=== PATIENT | female | born 1985 | race American Indian/Alaskan Native ===

== ENCOUNTER 2017-08-17 10:59 | Emergency (ER) | payer MEDICAID ==
--- NOTE | 2017-08-17 11:40 | Emergency Department Report ---
ED ENT HPI - General Chief complaint: Dental/Oral Stated complaint: TOOTHACHE Time Seen by Provider: 08/17/17 11:36 Source: patient, family Mode of arrival: Ambulatory Limitations: No Limitations - History of Present Illness Initial comments: H 32-year-old female complaining of left lower toothache. She said it's been ongoing on and off for months and is worsened today and pain is 6 out of 10 achy and worse with eating. Pain is constant and no alleviating factor. She says she's [id number] Aleve without any relief. Denies any sore throat or drooling. Denies any nasal congestion or runny nose. Denies any cough or shortness of breath or chest pain. Denies any fever or chills. MD complaint: tooth pain Onset/Timin -: month(s) Location: tooth # 1 - Toothache Severity: moderate Severity scale (0 -10): 6 Quality: aching Consistency: constant Improves with: none Worsens with: eating Context- Dental: poor dental care Associated Symptoms: toothache. denies: fever, cough, gum swelling, pain with swallowing, sore throat, tinnitus, hearing loss, discharge from ear, rhinorrhea - Related Data Previous Rx's Medication Instructions Recorded Last Taken Type Acetaminophen/Codeine [Tylenol 1 tab PO Q6H PRN #12 tab 08/17/17 Unknown Rx /Codeine # 3 tab] Clindamycin [Clindamycin CAP] 300 mg PO Q8H 10 Days #30 cap 08/17/17 Unknown Rx Ibuprofen [Motrin] 600 mg PO Q8H PRN #15 tablet 08/17/17 Unknown Rx Allergies Allergy/AdvReac Type Severity Reaction Status Date / Time No Known Allergies Allergy Unverified 08/17/17 11:18 ED Dental HPI - General Chief complaint: Dental/Oral Stated complaint: TOOTHACHE Time Seen by Provider: 08/17/17 11:36 Source: patient Mode of arrival: Ambulatory Limitations: No Limitations - Related Data Previous Rx's Medication Instructions Recorded Last Taken Type Acetaminophen/Codeine [Tylenol 1 tab PO Q6H PRN #12 tab 08/17/17 Unknown Rx /Codeine # 3 tab] Clindamycin [Clindamycin CAP] 300 mg PO Q8H 10 Days #30 cap 08/17/17 Unknown Rx Ibuprofen [Motrin] 600 mg PO Q8H PRN #15 tablet 08/17/17 Unknown Rx Allergies Allergy/AdvReac Type Severity Reaction Status Date / Time No Known Allergies Allergy Unverified 08/17/17 11:18 ED Review of Systems ROS: Stated complaint: TOOTHACHE Other details as noted in HPI Constitutional: denies: chills, fever Eyes: denies: eye pain, eye discharge ENT: dental pain. denies: ear pain, throat pain, epistaxis, congestion Respiratory: denies: cough, shortness of breath, SOB with exertion, SOB at rest , wheezing Cardiovascular: denies: chest pain, palpitations, edema, syncope Gastrointestinal: denies: abdominal pain, nausea, diarrhea Musculoskeletal: denies: back pain, joint swelling, arthralgia Skin: denies: rash, lesions Neurological: denies: headache ED Past Medical Hx - Past Medical History Previous Medical History?: No - Surgical History Past Surgical History?: No - Family History Family history: hypertension - Social History Smoking Status: Never Smoker Substance Use Type: None - Medications Home Medications: Home Medications Medication Instructions Recorded Confirmed Last Taken Type Acetaminophen/Codeine [Tylenol 1 tab PO Q6H PRN #12 tab 08/17/17 Unknown Rx /Codeine # 3 tab] Clindamycin [Clindamycin CAP] 300 mg PO Q8H 10 Days #30 cap 08/17/17 Unknown Rx Ibuprofen [Motrin] 600 mg PO Q8H PRN #15 tablet 08/17/17 Unknown Rx ED Physical Exam - General Limitations: No Limitations General appearance: alert, in no apparent distress - Head Head exam: Present: atraumatic, normocephalic, normal inspection - Eye Eye exam: Present: normal appearance, PERRL, EOMI Pupils: Present: normal accommodation - ENT ENT exam: Present: normal orophraynx, mucous membranes moist, TM's normal bilaterally, normal external ear exam - Expanded ENT Exam Expanded Ear exam: Present: normal external inspection Mouth exam: Present: normal external inspection Teeth exam: Present: dental caries, dental tenderness # (17 and 18), gingival enlargement. Absent: normal inspection, fractured tooth # 1 - Dental Tenderness (tender to palpate at tooth #17 and 18 without any induration or erythema.), Other (positive widespread gingivitis) Throat exam: Positive: normal inspection - Neck Neck exam: Present: normal inspection, full ROM. Absent: tenderness, lymphadenopathy - Respiratory Respiratory exam: Present: normal lung sounds bilaterally. Absent: respiratory distress, chest wall tenderness - Cardiovascular Cardiovascular Exam: Present: regular rate, normal rhythm, normal heart sounds - Extremities Exam Extremities exam: Present: normal inspection, full ROM, normal capillary refill , other (no clubbing, cyanosis or edema+2 pulses. Extremities). Absent: tenderness, pedal edema - Back Exam Back exam: Present: normal inspection - Neurological Exam Neurological exam: Present: alert, oriented X3, normal gait - Psychiatric Psychiatric exam: Present: normal affect, normal mood - Skin Skin exam: Present: warm, dry, intact, normal color. Absent: rash ED Course Vital Signs 08/17/17 11:18 Temperature 99 F Pulse Rate 77 Respiratory 18 Rate Blood Pressure 115/75 O2 Sat by Pulse 100 Oximetry - Reevaluation(s) Reevaluation #1: 08/17/17 11:54 Patient given Percocet 5/325 2 tablets by mouth for pain which relieved her dental pain. She was started on clindamycin 600 mg by mouth. ED Medical Decision Making - Medical Decision Making ED Course: This is a 32-year-old female presented to emergency room report toothache to left lower back tooth #17 and 181 month on and off as she woke up this morning and pain has been worsening. She's taken Advil without any relief. She is here to be evaluated. She was evaluated by myself and found to have widespread gingivitis, dental caries and tenderness to palpate around tooth #17 and 18 with cavities. No injuries or cellulitic area noted. Pain is controlled with pain medication and patient was started on antibiotic. I discussed diagnosis and treatment plan patient and she voiced understanding. p 1: Toothache- percocet 3/325 mg po in ED and pain is better. Will be discharged home in Tylenol 3 and Motrin 2: Gingivitis-patient started on clindamycin 600 mg by mouth and will be discharged home on clindamycin 3: Dental caries-referral to [facility] Education given on diagnosis, gum care, Flossing, medication and treatment plan is for some nondistended. Referral to [facility] Patient discharged home in stable condition with her family. Her vital signs are stable she's afebrile and she says she is feeling better. I discussed the patient that she is to call dentist today to schedule an appointment. She was understanding. Discharged home with prescription for Tylenol 3, Motrin and clindamycin. - Differential Diagnosis [employer], sinusitis, pharyngitis, dental abscess, gingivitis, toothache Critical care attestation.: If time is entered above; I have spent that time in minutes in the direct care of this critically ill patient, excluding procedure time. ED Disposition Clinical Impression: Dental caries, Gingivitis, Tooth ache Disposition: TO HOME OR SELFCARE Is pt being admited?: No Does the pt Need Aspirin: No Condition: Stable Instructions: Dental Caries (ED), Toothache (ED), Gingivitis (ED) Additional Instructions: Please gargle with Listerine mouthwash 2 times a day FLoss 2 times a day Follow-up a [facility] dental clinic as instructed Take antibiotic as instructed Please do not drive or operate heavy machinery while taking Tylenol No. 3 as this medication will cause drowsiness. Take this medication for severe pain Take Motrin with food intake for mild to moderate pain Prescriptions: Acetaminophen/Codeine [Tylenol /Codeine # 3 tab] 1 tab PO Q6H PRN #12 tab PRN Reason: moderate to severe pain Clindamycin [Clindamycin CAP] 300 mg PO Q8H 10 Days #30 cap Ibuprofen [Motrin] 600 mg PO Q8H PRN #15 tablet PRN Reason: mild pain Referrals: [facility] [Outside] - 08/21/17 [facility] [Outside] - 08/21/17 Forms: Work/School Release Form(ED)
[2017-08-17] MEDS: CLEOCIN PO ONE (11:51)
[2017-08-17] MEDS: PERCOCET 5/325 PO ONE (11:52)
[2017-08-17 12:14] VITALS: BP 126/72
== END 2017-08-17 12:13 | disposition home or self-care (01) ==
LOC: ED 10:59
DX: K02.9 Dental caries, unspecified (principal); K05.10 Chronic gingivitis, plaque induced
CPT/HCPCS: 99282